=== PATIENT | female | born 1960 | race Caucasian/White ===

== ENCOUNTER 2024-11-19 08:32 | Outpatient (CLI) | payer OTHER, SELFPAY | END 2024-11-19 08:33 | disposition home or self-care (01) | LOC: INJ CL 08:39 | PROVIDERS: PCP Family Medicine; Visit Provider Family Medicine | DX: M16.12 Unilateral primary osteoarthritis, left hip (principal); M25.552 Pain in left hip | CPT/HCPCS: 20610; 77002; J0702; Q9966 ==

== ENCOUNTER 2024-12-02 20:56 | Outpatient (CLI) | payer OTHER, SELFPAY | END 2024-12-02 20:57 | disposition home or self-care (01) | LOC: SLEEP 20:57 | PROVIDERS: PCP Family Medicine; Visit Provider Family Medicine | DX: G47.33 Obstructive sleep apnea (adult) (pediatric) (principal) | CPT/HCPCS: 95810 ==